=== PATIENT | female | born 1970 | race Caucasian/White ===

== ENCOUNTER 2017-01-28 13:40 | Emergency (ER) | payer OTHER ==
[~2017-01-28] VITALS: Ht 160 cm; Wt 76.0 kg
[~2017-01-28 13:40] MED LIST: ACET325T33 PO; ONDA4TAB8 PO
[2017-01-28 13:45] VITALS: Ht 160 cm; Wt 76.0 kg
[2017-01-28] MEDS ORDERED: IBUP400T22 PO (14:29)
--- NOTE | 2017-01-28 15:11 | ERD ---
ER Documentation Chief Complaint Chief Complaint REMY WITH REPORTS OF POSS FLU LIKE SYMTOMS, CONCERNED ABOUT HER BP HPI 46 year old female presenting to the emergency dept complaining of feeling fatigue since her boss has said some hurtful things to her last week. She states she feels really stressed, like she is coming down with the flu. Patient states she went to the [facility] earlier to get her control, she states that her doctor didn't give it to her this time since her blood pressure is little elevated. She states she had a headache over the weekend and took Tylenol and aspirin. She denies chest pain, shortness of breath, cough, abdominal pain. ROS All systems reviewed and are negative except as per history of present illness. Medications Home Meds Active Scripts Ibuprofen* (Ibuprofen*) 400 Mg Tablet, 400 MG PO Q6H Y for PAIN, #30 TAB Prov:SONAM ESPINAL PA-C 01/28/17 Ondansetron Hcl* (Zofran*) 4 Mg Tablet, 4 MG PO Q6H for NAUSEA AND/OR VOMITING, #7 TAB Prov:MARCELLA GARCIA PA-C 11/02/15 Acetaminophen* (Tylenol*) 325 Mg Tablet, 2 TAB PO Q8 Y for PAIN AND OR ELEVATED TEMP, #20 TAB Prov:MARCELLA GARCIA PA-C 11/02/15 Allergies Allergies: Coded Allergies: No Known Allergy (Unverified , 11/02/15) PMhx/Soc History of Surgery: Yes () Anesthesia Reaction: No Hx Neurological Disorder: No Hx Respiratory Disorders: No Hx Cardiac Disorders: No Hx Psychiatric Problems: No Hx Miscellaneous Medical Probl: No Hx Alcohol Use: Yes Hx Substance Use: No Hx Tobacco Use: No Smoking Status: Never smoker Physical Exam Vitals Vital Signs Date Time Temp Pulse Resp B/P Pulse Ox O2 Delivery O2 Flow Rate FiO2 01/28/17 13:45 98.8 90 16 154/83 96 Physical Exam Const: WDWN Head: Atraumatic Eyes: Normal Conjunctiva ENT: Normal External Ears, Nose and Mouth. Neck: Full range of motion..~ No meningismus. Resp: Clear to auscultation bilaterally. No rales Cardio: Regular rate and rhythm, no murmurs Abd: Soft, non tender, non distended. Normal bowel sounds Skin: No petechiae or rashes Back: No midline or flank tenderness Ext: No cyanosis, or edema Neur: Awake and alert Psych: Normal Mood and Affect Procedures/MDM 46 year old female presenting to the emergency dept complaining of feeling fatigue likely due to anxiety reaction since her boss has said some hurtful things to her last week. She states she feels really stressed and had a headache over the weekend. Patient had a normal neurological exam. I have discussed with her that she can take 3 days off from work and for her to follow- up with her primary care physician., she states she will do that tomorrow. Patient's blood pressure was elevated (>120/80) but appears stable without evidence of hypertension emergency or urgency. The patient was counseled about the risks of hypertension and urged to pursue outpatient monitoring and therapy within a week with their primary care physician. Prescription for ibuprofen provided, return precautions given Departure Diagnosis: Primary Impression: Anxiety Condition: Stable Patient Instructions: Your Body's Response to Anxiety Referrals: NO PRIMARY,CARE PHYSICIAN Additional Instructions: FOLLOW UP WITH YOUR PRIMARY CARE PHYSICIAN TOMORROW.Return to this facility if you are not improving as expected. SONAM ESPINAL PA-C Jan 28, 2017 15:11
== END 2017-01-28 15:19 | disposition home or self-care (01) ==
LOC: FTE 13:40
DX: F41.9 Anxiety disorder, unspecified (principal)
CPT/HCPCS: 99283

== ENCOUNTER 2017-01-30 08:26 | Emergency (ER) | payer OTHER ==
[~2017-01-30] VITALS: Ht 157.5 cm; Wt 76.0 kg
[~2017-01-30 08:26] MED LIST changes: +IBUP400T22 PO
[2017-01-30 08:29] VITALS: Ht 157.5 cm; Wt 76.0 kg
[2017-01-30] MEDS ORDERED: BENZ100C70 PO (08:53)
[2017-01-30] MEDS ORDERED: LORA10TA3 PO (08:53)
[2017-01-30] MEDS ORDERED: NASO17 NASAL (08:53)
[2017-01-30] MEDS ORDERED: IBUP800T25 PO (08:53)
--- NOTE | 2017-01-30 09:01 | ERD ---
ER Documentation Chief Complaint Chief Complaint pt bib self with c/o right ear pain and fever for a few days HPI 46 year old female comes in with right sided ear pain, sore throat, congestion for a few days. Patient describes otalgia on the right ear, going behind her ear as well and inner ear, described as achy, she also has a frontal headache with sinus congestion. The patient has had symptoms over the last 3 days without any fever, hemoptysis, chest pain or shortness of breath. She denies recent travel. Easily seen here and treated for anxiety and given a prescription for ibuprofen 100 mg, the patient is asking for additional ibuprofen for headache. ROS All systems reviewed and are negative except as per history of present illness. Medications Home Meds Active Scripts Benzonatate* (Tessalon Perle*) 100 Mg Capsule, 100 MG PO Q8H Y for COUGH, #30 CAP Prov:KVNG ALAN PA-C 01/30/17 Mometasone Furoate* (Nasonex*) 50 Mcg/Holder - 17 Gm Holder.pump, 1 SPRAY NASAL BID, #1 BOTTLE IN EACH NOSTRIL Prov:KVNG ALAN PA-C 01/30/17 Loratadine* (Loratadine*) 10 Mg Tablet, 10 MG PO DAILY, #30 TAB Prov:KVNG ALAN PA-C 01/30/17 Ibuprofen* (Motrin*) 800 Mg Tab, 800 MG PO Q6, #30 TAB Prov:KVNG ALAN PA-C 01/30/17 Ibuprofen* (Ibuprofen*) 400 Mg Tablet, 400 MG PO Q6H Y for PAIN, #30 TAB Prov:SONAM ESPINAL PA-C 01/28/17 Ondansetron Hcl* (Zofran*) 4 Mg Tablet, 4 MG PO Q6H for NAUSEA AND/OR VOMITING, #7 TAB Prov:MARCELLA GARCIA PA-C 11/02/15 Acetaminophen* (Tylenol*) 325 Mg Tablet, 2 TAB PO Q8 Y for PAIN AND OR ELEVATED TEMP, #20 TAB Prov:MARCELLA GARCIA PA-C 11/02/15 Allergies Allergies: Coded Allergies: No Known Allergy (Unverified , 11/02/15) PMhx/Soc History of Surgery: Yes () Anesthesia Reaction: No Hx Neurological Disorder: No Hx Respiratory Disorders: No Hx Cardiac Disorders: No Hx Psychiatric Problems: No Hx Miscellaneous Medical Probl: No Hx Alcohol Use: Yes Hx Substance Use: No Hx Tobacco Use: No Physical Exam Vitals Vital Signs Date Time Temp Pulse Resp B/P Pulse Ox O2 Delivery O2 Flow Rate FiO2 01/30/17 08:29 97.9 72 16 148/72 98 Physical Exam General: Well-developed, well-nourished. The patient appears in no acute distress. HEENT: Head is normocephalic, atraumatic. No scleral icterus. Pupils are equal , round, and reactive. Right TM is nonerythematous, fullness, mastoids are nontender. postauricular swelling but no warmth or erythema. Oral mucous membranes are moist. No pharyngeal erythema. Neck: Supple. Nontender. Lungs: Clear to auscultation. Normal air movement. Heart: Regular rate and rhythm. S1 and S2 are normal. No murmurs, gallops, or rubs. Abdomen: Soft, nontender, nondistended. Bowel sounds are normoactive. Extremities: No clubbing or cyanosis. Normal pulses. Moving extremities x 4. No weakness. Neurologic: Alert and oriented 3. No focal deficits. Skin: Normal turgor. No rash or lesions. Procedures/MDM The patient is a 46 year old female who comes in with an acute upper respiratory infection, presumed viral with right ear pain. Patient does not have eidence of otitis media of the right ear or mastoiditis. The patient has a differential diagnosis of a viral upper respiratory infection, bacterial upper respiratory infection, bronchitis, pneumonia, pharyngitis, laryngitis, epiglottitis, croup, pneumonia. Patient has a normal pulmonary examination, clear breath sounds, normal pulse oximetry, with no corrective measures needed at this time. Fluids, rest, antipyretics were encouraged. Departure Diagnosis: Primary Impression: URI, acute Additional Impression: Otalgia of right ear Condition: Good Patient Instructions: Uri, Viral, No Abx (Adult) KVNG ALAN PA-C Jan 30, 2017 09:01
== END 2017-01-30 09:15 | disposition home or self-care (01) ==
LOC: FTE 08:26
DX: J06.9 Acute upper respiratory infection, unspecified (principal)
CPT/HCPCS: 99284

== ENCOUNTER 2017-02-02 17:00 | Emergency (ER) | payer OTHER ==
[~2017-02-02] VITALS: Ht 160 cm; Wt 77.0 kg
[~2017-02-02 17:00] MED LIST changes: +BENZ100C70 PO; +IBUP800T25 PO; +LORA10TA3 PO; +NASO17 NASAL
[2017-02-02 17:01] VITALS: Ht 160 cm; Wt 77.0 kg
--- NOTE | 2017-02-02 18:49 | RADRPT ---
PROCEDURE: XR Chest. CLINICAL INDICATION: Productive cough. TECHNIQUE: Single frontal view. COMPARISON: 11/02/2015. FINDINGS: The lungs are clear. The heart size is normal. There is no pleural effusion. There is no pneumothorax. IMPRESSION: 1. Normal chest radiograph. 2. No change from 11/02/2015. RPTAT: QQ .Rolando Ron MD, MD Date Time Electronically viewed and signed by .Rolando Ron MD, MD on 02/02/2017 18:49 .R/
--- NOTE | 2017-02-02 18:54 | ERD ---
ER Documentation Chief Complaint Chief Complaint Left ear pain HPI The patient is a 46-year-old female who presents to the emergency department with complaint of ear pain, sore throat, congestion and cough. The patient reports that her symptoms initially began on Friday, with onset of sore throat , dry cough, and congestion. She was seen in the emergency department, at which time she was diagnosed with an upper respiratory infection, presumed to be viral. Patient was discharged home with symptomatic treatment, including Tessalon Perles, Nasonex, loratadine and ibuprofen. The patient notes that she has been taking medications as directed, with no significant relief. Rather, since discharge she notes that her cough has become productive, with green colored phlegm. Additionally, since last night she has developed left-sided ear pain, that feels clogged. She placed a warm pack to the left external ear last night, and shortly afterwards, while laying on the left side, noted mild bleeding from the left ear, with decreased hearing. She denies any fevers, sweats, neck pain, neck stiffness or new rashes. Denies abdominal pain, vomiting, diarrhea, back pain, dysuria, hematuria, flank pain. Denies recent travel, prolonged period of immobilization, recent surgeries, hemoptysis, chest pain, palpitations, shortness of breath, lower extremity swelling. Denies any other complaints at this time. Patient does admit to have multiple sick contacts. ROS All systems reviewed and are negative except as per history of present illness. Medications Home Meds Active Scripts Ibuprofen* (Motrin*) 600 Mg Tab, 600 MG PO Q6, #30 TAB Prov:PARKER BUTLER PA-C 02/02/17 Prednisone* (Prednisone*) 20 Mg Tab, 40 MG PO DAILY for 5 Days, TAB Prov:PARKER BUTLER PA-C 02/02/17 Amoxicillin* (Amoxicillin*) 500 Mg Cap, 500 MG PO TID for 7 Days, CAP Prov:PARKER BUTLER PA-C 02/02/17 Benzonatate* (Tessalon Perle*) 100 Mg Capsule, 100 MG PO Q8H Y for COUGH, #30 CAP Prov:KVNG ALAN PA-C 01/30/17 Mometasone Furoate* (Nasonex*) 50 Mcg/[place] - 17 Gm [place].pump, 1 SPRAY NASAL BID, #1 BOTTLE IN EACH NOSTRIL Prov:KVNG ALAN PA-C 01/30/17 Loratadine* (Loratadine*) 10 Mg Tablet, 10 MG PO DAILY, #30 TAB Prov:KVNG ALAN PA-C 01/30/17 Ibuprofen* (Motrin*) 800 Mg Tab, 800 MG PO Q6, #30 TAB Prov:KVNG ALAN PA-C 01/30/17 Ibuprofen* (Ibuprofen*) 400 Mg Tablet, 400 MG PO Q6H Y for PAIN, #30 TAB Prov:SONAM ESPINAL PA-C 01/28/17 Ondansetron Hcl* (Zofran*) 4 Mg Tablet, 4 MG PO Q6H for NAUSEA AND/OR VOMITING, #7 TAB Prov:MARCELLA GARCIA PA-C 11/02/15 Acetaminophen* (Tylenol*) 325 Mg Tablet, 2 TAB PO Q8 Y for PAIN AND OR ELEVATED TEMP, #20 TAB Prov:MARCELLA GARCIA PA-C 11/02/15 Allergies Allergies: Coded Allergies: No Known Allergy (Unverified , 11/02/15) PMhx/Soc Medical and Surgical Hx: pt denies Medical Hx, pt denies Surgical Hx History of Surgery: Yes ( X3) Anesthesia Reaction: No Hx Neurological Disorder: No Hx Respiratory Disorders: No Hx Cardiac Disorders: No Hx Psychiatric Problems: No Hx Miscellaneous Medical Probl: No Hx Alcohol Use: No Hx Substance Use: No Hx Tobacco Use: No Physical Exam Vitals Vital Signs Date Time Temp Pulse Resp B/P Pulse Ox O2 Delivery O2 Flow Rate FiO2 02/02/17 19:11 98.0 86 19 148/78 98 Room Air 02/02/17 17:01 98.0 89 19 154/77 97 Physical Exam GENERAL: Well-developed, well-nourished, female, in no acute distress. Speaking in full sentences. HEENT: Head is normocephalic, atraumatic. No scleral pallor or icterus. Pupils equal, round and reactive to light. Extraocular movements intact. Conjunctiva pink. Dried blood in the left external auditory canal, with hemotympanum and possible small perforation of the left TM. Right external auditory canal is clear, with no erythema, effusion or dulling of the light reflex. No tenderness upon palpation or manipulation of external tragus or pinna bilaterally. No mastoid tenderness. Moist mucous membranes. No pharyngeal erythema or exudates. Uvula is midline. No trismus. No stridor. No excessive drooling. Phonation is normal. No submandibular swelling. No brawny induration. NECK: Supple. No masses, no tenderness, no lymphadenopathy. Trachea midline. No nuchal rigidity. No meningismus. Full range of motion. RESPIRATORY: Lungs are clear to auscultation bilaterally. No rales, rhonchi or wheezing. Equal breath sounds. Normal expiratory effort. CARDIOVASCULAR: Regular rate and rhythm. S1 and S2 normal. EXTREMITIES: No clubbing, cyanosis, or edema. Normal skin perfusion. Moving all extremities. Muscle tone is normal. No focal swelling or erythema. NEUROLOGIC: The patient is alert, awake, and oriented x 3. No focal neurologic deficits. INTEGUMENT: Skin is intact. Warm and dry. No rashes, no petechiae present. PSYCHIATRIC: Cooperative; appropriate. Procedures/MDM DIAGNOSTIC TESTS AND INTERPRETATION: PROCEDURE: XR Chest. CLINICAL INDICATION: Productive cough. TECHNIQUE: Single frontal view. COMPARISON: 11/02/2015. FINDINGS: The lungs are clear. The heart size is normal. There is no pleural effusion. There is no pneumothorax. IMPRESSION: 1. Normal chest radiograph. 2. No change from 11/02/2015. .Rolando Ron MD, MD Date Time Electronically viewed and signed by .Rolando Ron MD, MD on 02/02/2017 18:49 ED COURSE: The patient was stable throughout ED course. I kept the patient informed of results throughout the ED course. I discussed the patient case with ED supervising physician, Dr. Foster, including history and physical examination findings. She recommends discharge home with Amoxicillin and Prednisone. MEDICAL DECISION MAKING: This is a 46-year-old female presenting to the emergency department complaining of sore throat, nasal congestion and productive cough. Patient also notes that since yesterday, she has developed increased pain to the left ear, which now feels more "clogged" and had blood from that ear last night. On physical examination, some blood was noted on the left external auditory canal, with hemotympanum and possible small perforation. Otherwise, no mastoid tenderness, no external ear tenderness/discomfort. Her lungs were clear to auscultation bilaterally, with no rales, rhonchi or wheezing. She was afebrile with no tachycardia, no tachypnea, no signs of respiratory distress. She had a normal O2 saturation on room air. She had no retractions, no increased work of breathing, no nasal flaring, no accessory muscle use. He exhibited no altered mental status, neurologic deficits or meningeal signs. Differential diagnosis includes, but is not limited to, pneumonia, pulmonary edema, sinusitis, foreign body, pertussis, upper respiratory infection, asthma, allergic rhinitis, GERD, bronchitis, allergic reaction, influenza, pharyngitis, otitis media, otitis externa, mastoiditis, TM perforation, cholesteatoma, foreign body. I No acute cardiopulmonary abnormalities were noted on the diagnostic chest x-ray performed. After rest, the patient reports no new complaints. Upon my review and interpretation of the patient's presentation and ER course, I believe the patient's symptoms are most consistent with upper respiratory infection and acute left tympanic membrane perforation with infection. No evidence of apnea, respiratory failure, dehydration, meningitis or other life- threatening etiology. The patient is well-appearing. She had no focal evidence of pneumonia. Patient's neck was supple, with no altered mental status, and therefore I doubt meningitis. Oropharynx was clear, with no erythema, exudates, petechiae, no associated cervical lymphadenopathy, and therefore I doubt streptococcal pharyngitis. At this time, the patient is in stable condition and not experiencing any current shortness of breath, wheezing or any signs of respiratory distress, and therefore can be discharged home with a prescription for Ibuprofen, Prednisone and Amoxicillin, and strict return precautions for signs of deteriorating or worsening condition. The patient is advised to follow up with her primary care provider within 2-3 days for reevaluation and further management or return to the ER sooner for any worsening symptoms. She is advised to make sure no water enters her ear, until she is advised that the perforation has fully healed. I shared my medical decision making and plan with the patient at length and in great detail, and she verbally understands and agrees with the plan for further observation and care as an outpatient. At the time of discharge all questions were answered. Departure Diagnosis: Primary Impression: Infection of left middle ear with rupture of eardrum Additional Impressions: Upper respiratory infection URI type: unspecified URI Qualified Code: J06.9 - Upper respiratory tract infection, unspecified type Cough Condition: Stable Patient Instructions: Eardrum Rupture (Perforation), Otitis Media, Abx Tx ( Adult), Uri, Viral, No Abx (Adult) Additional Instructions: Call your primary care doctor TOMORROW for an appointment during the next 2-3 days.See the doctor sooner or return here if your condition worsens before your appointment time. PARKER BUTLER PA-C Feb 02, 2017 18:54
[2017-02-02] MEDS ORDERED: IBUP-1542 PO (18:57)
[2017-02-02] MEDS ORDERED: PRED20TA PO (18:57)
[2017-02-02] MEDS ORDERED: AMOX500C2 PO (18:57)
[2017-02-02 19:11] VITALS: BP 148/78; PULSE 86; RESP 19; TEMP 98
== END 2017-02-02 19:15 | disposition home or self-care (01) ==
LOC: FTE 17:00
DX: H66.012 Acute suppurative otitis media with spontaneous rupture of ear drum, left ear (principal); J06.9 Acute upper respiratory infection, unspecified
CPT/HCPCS: 71010; Z7502

== ENCOUNTER 2017-02-24 13:58 | Emergency (ER) | payer OTHER ==
[~2017-02-24] VITALS: Ht 162.6 cm; Wt 77.8 kg
[~2017-02-24 13:58] MED LIST changes: +AMOX500C2 PO; +IBUP-1542 PO; +PRED20TA PO
[2017-02-24 14:04] VITALS: Ht 162.6 cm; Wt 77.8 kg
--- NOTE | 2017-02-24 16:48 | ERD ---
ER Documentation Chief Complaint Chief Complaint headache x 4 days (sinus pain) HPI Otherwise healthy 46-year-old female presents with a chief complaint of right ear discharge, headache, cough, and general malaise. The symptoms have been occurring intermittently for the past 4 weeks. Current episode 4 days. Patient also describes associated 5/10 chest pain while coughing. History of hypertension. No medications. Headache rated 6/10. States that the headache is in association with stress at work. Described as bandlike. Ibuprofen and Tylenol with moderate relief. Last year discharge was this a.m. Describes a discharge as white and minimal. Patient denies chest pressure, radiation of chest pain, dyspnea, palpitations, abdominal pain, fever, chills, body ache, worse headache of life, thunderclap headache, meningismus, change in hearing, or vision changes. Patient recently took amoxicillin 1 month ago for right otitis media. No recent hospitalization. Patient last saw PCP 6 days ago. Patient has no other complaints and describes no other associated manifestations. ROS All systems reviewed and are negative except as per history of present illness. Medications Home Meds Active Scripts Ibuprofen* (Motrin*) 600 Mg Tab, 600 MG PO Q6, #30 TAB Prov:PARKER BUTLER PA-C 02/02/17 Prednisone* (Prednisone*) 20 Mg Tab, 40 MG PO DAILY for 5 Days, TAB Prov:PARKER BUTLER PA-C 02/02/17 Amoxicillin* (Amoxicillin*) 500 Mg Cap, 500 MG PO TID for 7 Days, CAP Prov:PARKER BUTLER PA-C 02/02/17 Benzonatate* (Tessalon Perle*) 100 Mg Capsule, 100 MG PO Q8H Y for COUGH, #30 CAP Prov:KVNG ALAN PA-C 01/30/17 Mometasone Furoate* (Nasonex*) 50 Mcg/[place] - 17 Gm [place].pump, 1 SPRAY NASAL BID, #1 BOTTLE IN EACH NOSTRIL Prov:KVNG ALAN PA-C 01/30/17 Loratadine* (Loratadine*) 10 Mg Tablet, 10 MG PO DAILY, #30 TAB Prov:KVNG ALAN PA-C 01/30/17 Ibuprofen* (Motrin*) 800 Mg Tab, 800 MG PO Q6, #30 TAB Prov:KVNG ALAN PA-C 01/30/17 Ibuprofen* (Ibuprofen*) 400 Mg Tablet, 400 MG PO Q6H Y for PAIN, #30 TAB Prov:KYLIEROBZEYNEP Don PA-C 01/28/17 Ondansetron Hcl* (Zofran*) 4 Mg Tablet, 4 MG PO Q6H for NAUSEA AND/OR VOMITING, #7 TAB Prov:MARCELLA GARCIA PA-C 11/02/15 Acetaminophen* (Tylenol*) 325 Mg Tablet, 2 TAB PO Q8 Y for PAIN AND OR ELEVATED TEMP, #20 TAB Prov:MARCELLA GARCIA PA-C 11/02/15 Allergies Allergies: Coded Allergies: No Known Allergy (Unverified , 11/02/15) PMhx/Soc History of Surgery: Yes ( X3) Anesthesia Reaction: No Hx Neurological Disorder: No Hx Respiratory Disorders: No Hx Cardiac Disorders: No Hx Psychiatric Problems: No Hx Miscellaneous Medical Probl: No Hx Alcohol Use: No Hx Substance Use: No Hx Tobacco Use: No Physical Exam Vitals Vital Signs Date Time Temp Pulse Resp B/P Pulse Ox O2 Delivery O2 Flow Rate FiO2 02/24/17 14:04 98.0 88 18 141/76 97 Physical Exam Const: Well-appearing. No acute distress. Head: Normocephalic, Atraumatic. Eyes: Non-injected; No discharge. EOMI and CHERYL bilaterally. Ears: Normal External Ears, EACs clear, TM normal bilaterally without erythema. Nose: Normal external nose; no discharge, or sinus tenderness. Oral: No oral edema visualized. Mucous membranes moist and pink. Neck: No cervical lymphadenopathy, or masses palpated. Supple ~ No meningismus. Pulm: Good air movement in upper and lower respiratory tracts. Clear to auscultation bilaterally. No dyspnea or stridor. Cardio: Regular rate and rhythm; No murmurs, gallops or rubs auscultated. Radial pulses 2+ bilaterally. No cyanosis noted. Capillary refill less than 2 seconds. Abd: Normal bowel sounds. Soft, non tender, non distended. MS: Normal motor strength, normal tone with gross examination. Skin: No petechiae or rashes. Good turgor. Back: No midline, flank or CVA tenderness. Ext: No edema. Normal movement of all extremities grossly observed. Neur: Neurovascularly intact bilaterally. Psych: Normal Mood and Affect. Procedures/MDM Otherwise healthy 46-year-old female presenting with multiple complaints. Intermittent symptoms over the past couple months. Current episode of symptoms 4 days. Patient is currently happy and well-appearing without acute distress. Patient complains of ear discharge. Denies any discomfort or hearing changes. Physical exam of the ears was unremarkable. I have no suspicion for otitis media, malignant otitis externa, mastoiditis. Patient describes cough associated with atypical chest pain. Pulmonary exam unremarkable. Similar symptoms in past have resolved spontaneously. History of hypertension. Chest x-ray obtained and read as: Unremarkable. EKG obtained and read by me as: Normal sinus rhythm, no ST elevation or depression, no T- wave abnormalities, normal axis, good baseline. I have no suspicion for PE, ACS , pneumothorax, hemothorax, or pneumonia. Patient describes tension type headache associated with stress. No sinus tenderness. I have no suspicion for SAH, meningitis, or other intracranial pathology. Most likely diagnosis is tension type headache related to hypertension / stress. Influenza nasal swab obtained and read as negative. I have no suspicion for influenza or other SBI. Upon reevaluation the patient's condition has remained unchanged and is still currently happy and in no acute distress. Physical exam remains unremarkable. Abdomen remains soft, nondistended, nontender. The patient's most likely diagnosis is acute bronchitis versus other viral illness. I have suggested supportive therapy. Patient's current condition is stable and appropriate for discharge. Discharge instructions return questions have been discussed and given. Departure Diagnosis: Primary Impression: Multiple complaints Additional Impressions: Viral respiratory illness Viral upper respiratory illness Viral illness Condition: Stable Additional Instructions: Follow up with your PCP within the next 1-3 days for a more thorough evaluation and a possible referral to a specialist. Return the the emergency department immediately if symptoms worsen or change. If you have any questions regarding medications, ask your pharmacist or us before you leave. If any adverse reactions occur while taking your medications, discontinue the treatment and return to the emergency department immediately. Take your medications as directed, and complete the entire course of treatment. YOSHI AGUAYO PA-C Feb 24, 2017 16:46
--- NOTE | 2017-02-24 16:57 | RADRPT ---
PROCEDURE: XR Chest. CLINICAL INDICATION: Cough TECHNIQUE: Single AP portable chest. COMPARISON: 11/02/2015 Chest x-ray FINDINGS: The cardiomediastinal silhouette is within normal limits of size. The lungs are clear without pleur al effusion or focal consolidation. No pneumothorax. The osseous structures and soft tissues are unr emarkable. IMPRESSION: 1. No evidence for active cardiopulmonary disease. RPTAT:AAJJ Ignacio Sandoval Physician Date Time Electronically viewed and signed by Ignacio Sandoval Physician on 02/24/2017 16:57 [id number]/
[2017-02-24 19:08] VITALS: BP 125/78; PULSE 78; RESP 16
== END 2017-02-24 19:10 | disposition home or self-care (01) ==
LOC: FTE 13:58
DX: J06.9 Acute upper respiratory infection, unspecified (principal); B34.9 Viral infection, unspecified; R07.9 Chest pain, unspecified
CPT/HCPCS: 71010; 87400; 93005; Z7502

== ENCOUNTER 2017-06-22 17:10 | Emergency (ER) | END 2017-06-22 17:51 | disposition home or self-care (01) ==

== ENCOUNTER 2018-07-01 17:14 | Emergency (ER) | payer OTHER ==
[~2018-07-01] VITALS: Ht 160 cm; Wt 90.0 kg
[~2018-07-01 17:14] MED LIST changes: +BENZ-6 PO; -BENZ100C70 PO; +CEPH-443 PO; +IBUP-1541 PO; -IBUP400T22 PO; -IBUP800T25 PO; +IBUP800T48 PO
[2018-07-01 17:39] VITALS: Ht 160 cm; Wt 90.0 kg
[2018-07-01] MEDS ORDERED: KETOROLAC 30 MG INJ IM STA (18:00)
[2018-07-01] MEDS ORDERED: CYCL10TA7 PO (18:19)
[2018-07-01] MEDS ORDERED: NAPR-985 PO (18:19)
--- NOTE | 2018-07-01 18:23 | ERD ---
ER Documentation Chief Complaint Chief Complaint JAW PAIN/SWELLING; HEADACHE; RIGHT EAR PAIN HPI 48-year-old female presents with left-sided neck pain that radiates to her left shoulder that she has had for 3 days. She denies any trauma. She states her shoulder and right side of her neck feels tight. Pain radiates up to her jaw and to her ear. She also has ear pain. No fever. No vomiting. No cough. She is been taking Motrin regularly which she does state helps. She also states that she feels very tired in her limbs feel heavy. She thinks that she may have some sort of infection. ROS All systems reviewed and are negative except as per history of present illness. Medications Home Meds Active Scripts Naproxen* (Naprosyn*) 500 Mg Tablet, 500 MG PO BID PRN for PAIN AND/OR INFLAMMATION, #30 TAB Prov:AGUILAR SERRA PA-C 07/01/18 Cyclobenzaprine Hcl* (Cyclobenzaprine Hcl*) 10 Mg Tablet, 10 MG PO TID, #15 TAB Prov:AGUILAR SERRA PA-C 07/01/18 Cephalexin* (Keflex*) 500 Mg Capsule, 500 MG PO QID for 7 Days, #14 CAP Prov:DEEJAY RAMAN PA-C 06/22/17 Ibuprofen* (Motrin*) 600 Mg Tab, 600 MG PO Q6, #30 TAB Prov:PARKER BUTLER PA-C 02/02/17 Prednisone* (Prednisone*) 20 Mg Tab, 40 MG PO DAILY for 5 Days, TAB Prov:PARKER BUTLER PA-C 02/02/17 Amoxicillin* (Amoxicillin*) 500 Mg Cap, 500 MG PO TID for 7 Days, CAP Prov:PARKER BUTLER PA-C 02/02/17 Benzonatate* (Tessalon Perle*) 100 Mg Capsule, 100 MG PO Q8H PRN for COUGH, #30 CAP Prov:KVNG ALAN PA-C 01/30/17 Mometasone Furoate* (Nasonex*) 50 Mcg/[place] - 17 Gm [place].pump, 1 SPRAY NASAL BID, #1 BOTTLE IN EACH NOSTRIL Prov:KVNG ALAN PA-C 01/30/17 Loratadine* (Loratadine*) 10 Mg Tablet, 10 MG PO DAILY, #30 TAB Prov:KVNG ALAN PA-C 01/30/17 Ibuprofen* (Motrin*) 800 Mg Tab, 800 MG PO Q6, #30 TAB Prov:KVNG ALAN PA-C 01/30/17 Ibuprofen* (Ibuprofen*) 400 Mg Tablet, 400 MG PO Q6H PRN for PAIN, #30 TAB Prov:KURTISSONAM Estrella Arian DOMINGUEZ 01/28/17 Ondansetron Hcl* (Zofran*) 4 Mg Tablet, 4 MG PO Q6H for NAUSEA AND/OR VOMITING, #7 TAB Prov:MARCELLA GARCIA PA-C 11/02/15 Acetaminophen* (Tylenol*) 325 Mg Tablet, 2 TAB PO Q8 PRN for PAIN AND OR ELEVATED TEMP, #20 TAB Prov:MARCELLA GARCIA PA-C 11/02/15 Allergies Allergies: Coded Allergies: No Known Allergy (Unverified , 11/02/15) PMhx/Soc History of Surgery: Yes ( X3) Anesthesia Reaction: No Hx Neurological Disorder: No Hx Respiratory Disorders: No Hx Cardiac Disorders: No Hx Psychiatric Problems: No Hx Miscellaneous Medical Probl: No Hx Alcohol Use: No Hx Substance Use: No Hx Tobacco Use: No Smoking Status: Never smoker FmHx Family History: No diabetes Physical Exam Vitals Vital Signs Date Temp Pulse Resp B/P (MAP) Pulse Ox O2 O2 Flow FiO2 Time Delivery Rate 07/01/18 98.8 88 24 141/79 98 17:39 (99) Physical Exam INITIAL VITAL SIGNS: Reviewed by me GENERAL: Awake, alert and oriented x 4, well appearing, nontoxic, speaking in full sentences. No acute distress HEAD: Atraumatic NECK: Supple. No masses. Full range of motion. No meningismus. No midline tenderness. EYES: EOMI. PERRL. EAR: No tenderness over the mastoids bilaterally. No exudates in the canals. TMs nonerythematous. NOSE: Normal nose. THROAT: No tonilar erythema or edema. No exudates. Uvula midline. No kissing tonsils. RESPIRATORY: Clear to auscultation bilaterally. Symmetric chest wall rise. No wheezing or rales. No accessory muscle use. CV: Regular rate and rhythm. No murmurs, rubs, or gallops. ABDOMEN: Soft, non-distended. Nontender. Negative [place]. Negative [place] point tenderness. No CVA tenderness bilaterally. No guarding. No rebound. Upper Extremity -left Skin: No laceration, or evidence of external trauma Compartments: Soft Motor: Full active range of motion shoulder/elbow Sensation: Intact shoulder Bones: Nontender humerus/elbow/ Joints: No effusion Pulses/Perfusion: 2+ radial, Capillary refill < 2 seconds Results 24 hrs Current Medications Medications Dose Sig/Elisha Start Time Status Last (Trade) Ordered Route PRN Stop Time Admin Dose Reason Admin Ketorolac 30 mg ONCE STAT 07/01/18 DC Tromethamine IM 18:00 (Toradol) 07/01/18 18:01 Procedures/MDM Patient has left-sided neck and shoulder pain that radiates up to her jaw. She is afebrile well-appearing. Her exam is normal. Most likely musculoskeletal. Motrin has been helping. I gave her Toradol here and prescription for naproxen and Flexeril. No evidence of infection. Patient counseled regarding my diagnostic impression and care plan. Prior to discharge all questions answered. Pt agrees with treatment plan and understands strict return precautions. Pt is instructed to follow up with primary care provider within 24-48 hours. Precautionary instructions provided including instructions to return to the ER if not improving or for any worsening or changing symptoms or concerns. Departure Diagnosis: Primary Impression: Cervical strain Condition: Stable Patient Instructions: Neck Problems: Relieving Your Symptoms, Neck Pain, No Trauma Additional Instructions: Call your primary care doctor TOMORROW for an appointment during the next 1-2 days.See the doctor sooner or return here if your condition worsens before your appointment time. AGUILAR SERRA PA-C Jul 01, 2018 18:23
[2018-07-01 18:53] VITALS: BP 132/82; PULSE 84; RESP 20
== END 2018-07-01 18:53 | disposition home or self-care (01) ==
LOC: FTE 17:14
DX: S16.1XXA Strain of muscle, fascia and tendon at neck level, initial encounter (principal); X58.XXXA Exposure to other specified factors, initial encounter; Y92.9 Unspecified place or not applicable
CPT/HCPCS: 81025; 96372; J1885; Z7502